=== PATIENT | female | born 1980 | race Caucasian/White ===

== ENCOUNTER 2017-09-02 17:54 | Emergency (ER) | payer OTHER ==
[~2017-09-02] VITALS: Ht 162.6 cm; Wt 89.8 kg
[2017-09-02] MEDS ORDERED: LURA80TA PO (18:18)
[2017-09-02] MEDS ORDERED: TRAZ-147 PO (18:18)
[2017-09-02] MEDS ORDERED: ATOR10TA PO (18:18)
[2017-09-02] MEDS ORDERED: METO-356 PO (18:18)
[2017-09-02] MEDS ORDERED: VENL75TA4 PO (18:18)
[2017-09-02] MEDS ORDERED: LAMO100T PO (18:18)
[2017-09-02] MEDS ORDERED: GABA400C PO (18:18)
--- NOTE | 2017-09-02 19:29 | NUR ---
assumed care for pt from day shift nurse. pt aaox4, here with c/o throat pain and ear ache. pt in no respiratory distress, able to speak in clear and complete sentences. awaiting for ERMD MSE. pt in no acute distress.
[2017-09-02 20:53] LABS: BASOPHILS % (AUTO) 0.6 % (0.0-2.0); EOSINOPHILS # (AUTO) 0.1 K/uL (0.0-0.7); HEMATOCRIT 34.2 % (31.2-41.9); HEMOGLOBIN 11.8 g/dL (10.9-14.3); LYMPHOCYTES # (AUTO) 2.3 K/uL (20.0-40.0); MEAN CORPUSCULAR HEMOGLOBIN 29.3 uug (24.7-32.8); MEAN CORPUSCULAR HGB CONC 35 g/dL (32.3-35.6); MEAN CORPUSCULAR VOLUME 84.8 fL (75.5-95.3); MONOCYTES # (AUTO) 0.6 K/uL (2.0-10.0); NEUTROPHILS # (AUTO) 3.1 K/uL (1.8-8.9); NEUTROPHILS % (AUTO) 50.4 % (38.5-71.5); PLATELET COUNT (AUTO) 170 K/uL (179-408); RED BLOOD CELL COUNT(AUTO) 4.03 MIL/uL (3.63-4.92); WHITE BLOOD COUNT (AUTO) 6.1 K/uL (3.8-11.8)
[2017-09-02 21:16] LABS: *MONOTEST NEGATIVE (NEGATIVE)
--- NOTE | 2017-09-02 22:10 | NUR ---
Patient discharged to home in stable conditon. Written and verbal after care instructions given with rx. Patient verbalizes understanding of instructions. pt walked out of ED with stable and steady gait, accompanied by significant other.
[2017-09-02 22:11] VITALS: BP 125/70
== END 2017-09-02 22:11 | disposition home or self-care (01) ==
LOC: ER 17:57
DX: I88.9 Nonspecific lymphadenitis, unspecified (principal); I10 Essential (primary) hypertension; E78.00 Pure hypercholesterolemia, unspecified; Z79.891 Long term (current) use of opiate analgesic; Z79.899 Other long term (current) drug therapy
CPT/HCPCS: 36415; 84443; 85025; 86308; A4663

== ENCOUNTER 2018-03-21 09:03 | Emergency (ER) | payer OTHER ==
[~2018-03-21] VITALS: Ht 162.6 cm; Wt 99.8 kg
[~2018-03-21 09:03] MED LIST: ATOR10TA PO; GABA400C PO; LAMO100T PO; LURA80TA PO; METO-356 PO; TRAZ-214 PO; VENL75TA4 PO
[2018-03-21] MEDS ORDERED: LURA80TA PO (09:25)
[2018-03-21] MEDS ORDERED: GABA-534 PO (09:25)
[2018-03-21] MEDS ORDERED: GABA600T2 PO (09:25)
[2018-03-21] MEDS ORDERED: IBUPROFEN 600 MG TABLET PO ONE (09:30)
[2018-03-21] MEDS ORDERED: IBUPROFEN 600 MG TABLET ONE (09:34)
[2018-03-21 09:40] LABS: BASOPHILS % (AUTO) 0.8 % (0.0-2.0); EOSINOPHILS # (AUTO) 0.1 K/uL (0.0-0.7); EOSINOPHILS % (AUTO) 1.8 % (0.0-7.0); HEMATOCRIT 37.4 % (31.2-41.9); LYMPHOCYTES # (AUTO) 1.8 K/uL (20.0-40.0); LYMPHOCYTES % (AUTO) 36.3 % (20.5-51.5); MEAN CORPUSCULAR HEMOGLOBIN 30.5 uug (24.7-32.8); MEAN CORPUSCULAR HGB CONC 35 g/dL (32.3-35.6); MEAN CORPUSCULAR VOLUME 87.5 fL (75.5-95.3); MONOCYTES # (AUTO) 0.4 K/uL (2.0-10.0); MONOCYTES % (AUTO) 7.5 % (0.0-11.0); NEUTROPHILS # (AUTO) 2.7 K/uL (1.8-8.9); NEUTROPHILS % (AUTO) 53.6 % (38.5-71.5); PLATELET COUNT (AUTO) 150 K/uL (179-408); RED BLOOD CELL COUNT(AUTO) 4.28 MIL/uL (3.63-4.92)
[2018-03-21 10:05] LABS: BILIRUBIN,DIRECT 0.1 mg/dL (0.0-0.2); BILIRUBIN,TOTAL 0.3 mg/dL (0.2-1.0); CREATININE 1.1 mg/dL (0.6-1.3); POTASSIUM 3.9 mmol/L (3.5-5.1)
--- NOTE | 2018-03-21 10:39 | NUR ---
Patient discharged to home in stable conditon with family. Written and verbal after care instructions given. Patient verbalizes understanding of instructions. Stressed follow up with pmd or return to ER for worsening s/s.
[2018-03-21 10:40] VITALS: BP 110/67
== END 2018-03-21 10:41 | disposition home or self-care (01) ==
LOC: ER 09:03
DX: R07.89 Other chest pain (principal); I10 Essential (primary) hypertension; E78.00 Pure hypercholesterolemia, unspecified
CPT/HCPCS: 36415; 70030-TC; 71045; 85025; 85730; 93005; A4663

== ENCOUNTER 2018-07-04 20:16 | Emergency (ER) | payer OTHER ==
[~2018-07-04] VITALS: Ht 160 cm; Wt 99.8 kg
[~2018-07-04 20:16] MED LIST changes: +GABA-534 PO; -GABA400C PO; +GABA600T12 PO
--- NOTE | 2018-07-04 20:53 | NUR ---
Dr. Silva in room for LEEROY.
[2018-07-04 21:08] LABS: *BILIRUBIN,URIN 1+ (NEGATIVE); *BLOOD, URINE NEGATIVE (NEGATIVE); *KETONES,URINE TRACE (NEGATIVE); *UROBILINOGEN,URINE 0.2 E.U./dl (NORMAL); LEUKOCYTE ESTERASE ,URINE NEGATIVE (NEGATIVE); NITRITE, URINE NEGATIVE (NEGATIVE); PH,URINE 5.5 (5.0-8.0); UGLUCOSE NEGATIVE (NEGATIVE)
[2018-07-04 21:10] LABS: *URINE HCG, QUAL NEGATIVE (NEGATIVE)
[2018-07-04 21:12] LABS: *CLARITY,URINE SLIGHTLY HAZY (CLEAR); *COLOR,URINE DARK YELLOW (YELLOW)
[2018-07-04 21:14] LABS: BACTERIA,URINE FEW /HPF (NONE SEEN); MUCUS,URINE MANY /LPF (0-FEW); RBC,URINE 0-3 /HPF (0-3); SQUAMOUS EPITHELIAL CELL,UR MODERATE /HPF (NONE SEEN); WBC,URINE 0-3 /HPF (0-3)
[2018-07-04 21:31] VITALS: BP 108/70
--- NOTE | 2018-07-04 21:31 | NUR ---
dPatient discharged to home in stable conditon. Written and verbal after care instructions given. Patient verbalizes understanding of instructions. Patient ambulated out of ER with stable gait.
== END 2018-07-04 21:32 | disposition home or self-care (01) ==
LOC: ER 20:16
DX: N94.6 Dysmenorrhea, unspecified (principal); I10 Essential (primary) hypertension; E78.00 Pure hypercholesterolemia, unspecified; Z90.49 Acquired absence of other specified parts of digestive tract; Z79.891 Long term (current) use of opiate analgesic; Z79.899 Other long term (current) drug therapy
CPT/HCPCS: 84703; A4663

== ENCOUNTER 2018-07-07 10:23 | Emergency (ER) | payer OTHER ==
[~2018-07-07] VITALS: Ht 157.5 cm; Wt 99.8 kg
--- NOTE | 2018-07-07 10:44 | NUR ---
Patient discharged to home in stable conditon & brisk steady gait. Written and verbal after care instructions given to patient. Patient verbalizes understanding of instructions.
== END 2018-07-07 10:45 | disposition home or self-care (01) ==
LOC: ER 10:23
DX: M43.6 Torticollis (principal); I10 Essential (primary) hypertension; E78.00 Pure hypercholesterolemia, unspecified; Z90.49 Acquired absence of other specified parts of digestive tract; Z79.891 Long term (current) use of opiate analgesic; Z79.899 Other long term (current) drug therapy
CPT/HCPCS: A4663

== ENCOUNTER 2018-08-04 21:37 | Emergency (ER) | payer OTHER ==
[~2018-08-04] VITALS: Ht 157.5 cm; Wt 99.8 kg
--- NOTE | 2018-08-04 22:30 | NUR ---
Patient ambulated with stable gait. Patient AAOx4. Speech is clear, speaks in complete sentences. No neuro deficits. Patient came in with c/o R.NECK + midback pain. Pain 8/10. Respirator even and unlabored. No cardiovascular distress, all pulses palpable. No GI/ distress. Patient in bed at lowest position. Side rails up x2, call light within reach. Fall precautions implemented per protocol.
[2018-08-04] MEDS ORDERED: ONDANSETRON ODT 4 MG TAB.RAPDIS SL ONE (22:45)
[2018-08-04] MEDS ORDERED: HYDROCODONE/APAP 10-325 MG TABLET PO ONE (22:45)
[2018-08-04] MEDS ORDERED: ONDANSETRON ODT 4 MG TAB.RAPDIS ONE (22:47)
[2018-08-04] MEDS ORDERED: HYDROCODONE/APAP 10-325 MG TABLET ONE (22:47)
[2018-08-05 00:01] LABS: *URINE HCG, QUAL NEGATIVE (NEGATIVE)
--- NOTE | 2018-08-05 00:07 | NUR ---
Patient in bed at lowest setting, side rails upx2, call light within reach. NAD.
--- NOTE | 2018-08-05 00:39 | NUR ---
Jv dobson in ED - 08/05/18 at 0040 by FARHAD Patient discharged to home in stable conditon. Written and verbal after care instructions given. Patient verbalizes understanding of instructions. Patient ambulated with stable gait.
--- NOTE | 2018-08-05 01:30 | NUR ---
Patient discharged to home in stable conditon. Written and verbal after care instructions given. Patient verbalizes understanding of instructions. Patient ambulated with stable gait. Instructed not to drive. Father will be driving patient home.
[2018-08-05 01:31] VITALS: BP 109/68
== END 2018-08-05 01:33 | disposition home or self-care (01) ==
LOC: ER 21:37
DX: M54.2 Cervicalgia (principal); M54.9 Dorsalgia, unspecified; I10 Essential (primary) hypertension; E78.5 Hyperlipidemia, unspecified; Z90.49 Acquired absence of other specified parts of digestive tract; Z79.899 Other long term (current) drug therapy; V49.9XXA Car occupant (driver) (passenger) injured in unspecified traffic accident, initial encounter; Y93.89 Activity, other specified; Y92.410 Unspecified street and highway as the place of occurrence of the external cause; Y99.8 Other external cause status
CPT/HCPCS: 71045; 72125; 84703; A4663; Q0162

== ENCOUNTER 2022-08-25 15:19 | Emergency (ER) | payer OTHER ==
[~2022-08-25] VITALS: Ht 157.5 cm; Wt 99.8 kg
[~2022-08-25 15:19] MED LIST changes: -LAMO100T PO; +LAMO100T17 PO; -TRAZ-214 PO; +TRAZ-257 PO
--- NOTE | 2022-08-25 15:39 | NUR ---
41 years old female walk in to c/o lower back pain since last tuesday after fall worse today.
[2022-08-25] MEDS ORDERED: HYDR-4209 PO (15:52)
[2022-08-25 16:13] VITALS: BP 130/70
--- NOTE | 2022-08-25 16:15 | NUR ---
patient seen evaluated by Dr Madden condition stable d/c home with instructions after care reviewed understood.
== END 2022-08-25 16:17 | disposition home or self-care (01) ==
LOC: ER 15:19
DX: S39.92XA Unspecified injury of lower back, initial encounter (principal); I10 Essential (primary) hypertension; E78.5 Hyperlipidemia, unspecified; Z90.49 Acquired absence of other specified parts of digestive tract; Z79.899 Other long term (current) drug therapy; X58.XXXA Exposure to other specified factors, initial encounter; Y93.89 Activity, other specified; Y92.89 Other specified places as the place of occurrence of the external cause; Y99.8 Other external cause status
CPT/HCPCS: A4663